=== PATIENT | female | born 1960 | race Two or more races ===

== ENCOUNTER 2020-11-15 13:47 | Outpatient (CLI) | payer OTHER | END 2020-11-15 17:35 | disposition home or self-care (01) | LOC: OFIC 805 13:47 | PROVIDERS: ATTEND Otolaryngology Otology & Neurotology | DX: H93.12 Tinnitus, left ear (principal); H90.A12 Conductive hearing loss, unilateral, left ear with restricted hearing on the contralateral side; R49.0 Dysphonia; E22.0 Acromegaly and pituitary gigantism ==

== ENCOUNTER 2020-12-06 13:25 | Outpatient (CLI) | payer OTHER ==
[2020-12-10] MEDS ORDERED: LIRICA PO (10:37)
[2020-12-10] MEDS ORDERED: SYNTHROID112 MCG PO (10:37)
== END 2020-12-06 15:25 | disposition home or self-care (01) ==
LOC: OFIC 805 13:25
PROVIDERS: ATTEND Otolaryngology Otology & Neurotology
DX: H90.A12 Conductive hearing loss, unilateral, left ear with restricted hearing on the contralateral side (principal); H93.12 Tinnitus, left ear

== ENCOUNTER 2020-12-17 08:44 | Day surgery (SDC) | payer OTHER ==
[~2020-12-17 08:44] MED LIST: LIRICA PO; SYNTHROID112 MCG PO
== END 2020-12-17 17:15 | disposition home or self-care (01) ==
LOC: CIR.AMB 08:44
PROVIDERS: ATTEND Otolaryngology Otology & Neurotology
DX: H90.A12 Conductive hearing loss, unilateral, left ear with restricted hearing on the contralateral side (principal); H80.82 Other otosclerosis, left ear; Z20.822 Contact with and (suspected) exposure to COVID-19

== ENCOUNTER 2020-12-22 08:21 | Outpatient (CLI) | payer OTHER | END 2020-12-22 10:31 | disposition home or self-care (01) | LOC: OFIC 805 08:21 | PROVIDERS: ATTEND Otolaryngology Otology & Neurotology | DX: H93.12 Tinnitus, left ear (principal); H90.12 Conductive hearing loss, unilateral, left ear, with unrestricted hearing on the contralateral side ==

== ENCOUNTER 2021-01-12 08:19 | Outpatient (CLI) | payer OTHER | END 2021-01-12 08:44 | disposition home or self-care (01) | LOC: OFIC 805 08:19 | PROVIDERS: ATTEND Otolaryngology Otology & Neurotology | DX: E22.0 Acromegaly and pituitary gigantism (principal); H90.A12 Conductive hearing loss, unilateral, left ear with restricted hearing on the contralateral side; H93.12 Tinnitus, left ear ==

== ENCOUNTER 2021-03-08 13:47 | Outpatient (CLI) | payer OTHER | END 2021-03-08 15:54 | disposition home or self-care (01) | LOC: OFIC 805 13:47 | PROVIDERS: ATTEND Otolaryngology Otology & Neurotology | DX: H93.12 Tinnitus, left ear (principal); H90.A12 Conductive hearing loss, unilateral, left ear with restricted hearing on the contralateral side; R49.0 Dysphonia; E22.0 Acromegaly and pituitary gigantism; H69.83 Other specified disorders of Eustachian tube, bilateral; J30.89 Other allergic rhinitis ==